=== PATIENT | female | born 2000 | race Caucasian/White ===

== ENCOUNTER 2021-03-29 20:57 | Emergency (ER) | payer SELFPAY ==
[~2021-03-29] VITALS: Ht 160 cm; Wt 72.6 kg
--- NOTE | 2021-03-29 21:39 | ED General ---
General Chief Complaint: Abdominal/GI Problems Stated Complaint: HEADACHE NAUSEA/VOMITING/DIZZINESS Source of Information: Patient History of Present Illness Date Seen by Provider: Mar 29, 2021 Time Seen by Provider: 21:20 Initial Comments PT ARRIVES VIA POV FROM HOME STATES FOR THE LAST 4 DAYS, SHE HAS HAD HEADACHE, NAUSEA WITH A LITTLE BIT OF VOMITING AND A LITTLE BIT OF DIZZINESS--ALL OFF AN ON CURRENTLY IS NOT HAVING ANY SYMPTOMS OF ANY KIND SYMPTOMS ARE NO DIFFERENT TODAY IN ANY WAY HAS NOT SOUGHT CARE UNTIL TONIGHT ( THURSDAY NIGHT) HAS NOT TAKEN ANYTHING FOR SYMPTOMS AT ANY TIME NO ABDOMINAL PAIN NO FEVER NO URINARY SYMPTOMS NO COUGH OR URI SYMPTOMS NO DIARRHEA NO VISION CHANGES NO PARESTHESIAS OR MOTOR DEFICITS NO NECK STIFFNESS HAS BEEN DRINKING FLUIDS WELL, AND HAS CONTINUED TO EAT LMP--END February, NO CONTROL PCP: Review of Systems Review of Systems Constitutional: see HPI; No chills, No diaphoresis; dizziness; No fever, No malaise, No weakness EENTM: no symptoms reported; No blurred vision, No nose congestion, No throat pain Respiratory: no symptoms reported; No cough, No short of breath Cardiovascular: no symptoms reported; No chest pain Gastrointestinal: see HPI; No abdominal pain, No diarrhea; nausea, vomiting Genitourinary: no symptoms reported : No LMP: Mar 17, 2021 Musculoskeletal: No back pain, No neck pain Skin: no symptoms reported Psychiatric/Neurological: See HPI, Headache Hematologic/Lymphatic: No Symptoms Reported Immunological/Allergic: no symptoms reported Physical Exam Vital Signs Capillary Refill : Height, Weight, BMI Height: '" Weight: lbs. oz. kg; BMI Method: General Appearance: No Apparent Distress, WD/WN, Other (DOES NOT APPEAR ILL OR TO BE IN ANY DISCOMFORT OR DISTRESS OR ILL) HEENT: PERRL/EOMI, TMs Normal, Normal ENT Inspection, Pharynx Normal Neck: Normal Inspection Respiratory: Normal Breath Sounds, No Accessory Muscle Use, No Respiratory Distress Cardiovascular: Regular Rate, Rhythm, No Edema, No JVD, No Murmur, Normal Peripheral Pulses Gastrointestinal: Normal Bowel Sounds, No Organomegaly, No Pulsatile Mass, Non Tender, Soft Back: Normal Inspection Extremity: Normal Inspection Neurologic/Psychiatric: Alert, Oriented x3, No Motor/Sensory Deficits, Normal Mood/Affect, jury consultant II-XII Norm as Tested; No Abnormal Cerebellar Tests Skin: Normal Color, Warm/Dry; No Rash Progress/Results/Core Measures Suspected Sepsis SIRS Temperature: Pulse: Respiratory Rate: Blood Pressure / Mean: Results/Orders Lab Results Laboratory Tests Test 03/29/21 21:15 03/29/21 21:35 Range/Units Influenza Type A (RT-PCR) Not Detected Not Detecte Influenza Type B (RT-PCR) Not Detected Not Detecte SARS-CoV-2 RNA (RT-PCR) Not Detected Not Detecte Urine Color YELLOW Urine Clarity CLEAR Urine pH 6.5 5-9 Urine Specific [place] <=1.005 1.016-1.022 Urine Protein NEGATIVE NEGATIVE Urine Glucose (UA) NEGATIVE NEGATIVE Urine Ketones NEGATIVE NEGATIVE Urine Nitrite NEGATIVE NEGATIVE Urine Bilirubin NEGATIVE NEGATIVE Urine Urobilinogen 0.2 < = 1.0 MG/DL Urine Leukocyte Esterase 1+ H NEGATIVE Urine RBC (Auto) NEGATIVE NEGATIVE Urine RBC NONE /HPF Urine WBC 0-2 /HPF Urine Crystals PRESENT H /LPF Urine Amorphous Sediment RARE VIKTOR URATES H /LPF Urine Bacteria TRACE /HPF Urine Casts NONE /LPF Urine Mucus NEGATIVE /LPF Urine Culture Indicated NO Urine Opiates Screen NEGATIVE NEGATIVE Urine Oxycodone Screen POSITIVE H NEGATIVE Urine Methadone Screen NEGATIVE NEGATIVE Urine Propoxyphene Screen NEGATIVE NEGATIVE Urine Barbiturates Screen NEGATIVE NEGATIVE Ur Tricyclic Antidepressants Screen NEGATIVE NEGATIVE Urine Phencyclidine Screen NEGATIVE NEGATIVE Urine Amphetamines Screen NEGATIVE NEGATIVE Urine Methamphetamines Screen NEGATIVE NEGATIVE Urine Benzodiazepines Screen NEGATIVE NEGATIVE Urine Cocaine Screen NEGATIVE NEGATIVE Urine Cannabinoids Screen NEGATIVE NEGATIVE My Orders Orders - ROBYN BARRERA DO Covid 19 Inhouse Test (03/29/21 21:27) Influenza A And B By Pcr (03/29/21 21:27) Drug Screen Stat (Urine) (03/29/21 21:27) Ua Culture If Indicated (03/29/21 21:27) Urine Bedside (03/29/21 21:27) Vital Signs/I&O Capillary Refill : Departure Impression Primary Impression: Nausea and vomiting Additional Impressions: Illicit drug use OPIATE ABUSE Disposition: 01 HOME, SELF-CARE Condition: Stable Departure-Patient Inst. Decision time for Depature: 22:10 Patient Instructions: Drug Abuse Treatment, Drug Abuse and Drug Addiction (DC), Nausea and Vomiting, Adult ED Add. Discharge Instructions: NO DRUGS!!!!!! CLEAR LIQUIDS--WATER, BROTH, JELLO, GATORADE BRATS DIET --BANANAS, RICE, APPLESAUCE, TOAST, SALTINES TYLENOL NEEDED FOR PAIN FOLLOW UP WITH DR. OF CHOICE IN 2-3 DAYS IF NO BETTER All discharge instructions reviewed with patient and/or family. Voiced understanding. Scripts Ondansetron (Ondansetron Odt) 4 Mg Tab.rapdis 4 MG PO Q4H for Nausea/Vomiting, #10 TAB Prov: ROBYN BARRERA DO 03/29/21 Work/School Note: Local [employer] Listing ROBYN BARRERA DO Mar 29, 2021 21:39
[2021-03-29 21:41] LABS: BILIRUBIN,URINE NEGATIVE (NEGATIVE); CLARITY,URINE CLEAR; COLOR,URINE YELLOW; GLUCOSE, URINE (UA) NEGATIVE (NEGATIVE); KETONES,URINE NEGATIVE (NEGATIVE); LEUKOCYTE ESTERASE ,URINE 1+ (NEGATIVE); NITRITE,URINE NEGATIVE (NEGATIVE); PH,URINE 6.5 (5-9); PROTEIN,URINE NEGATIVE (NEGATIVE)
[2021-03-29 21:56] LABS: AMPHETAMINE SCREEN, URINE NEGATIVE (NEGATIVE); BARBITURATE SCREEN URINE NEGATIVE (NEGATIVE); BENZODIAZEPINES SCREEN URINE NEGATIVE (NEGATIVE); CANNABINOID SCREEN, URINE NEGATIVE (NEGATIVE); COCAINE SCREEN URINE NEGATIVE (NEGATIVE); METHADONE STAT NEGATIVE (NEGATIVE); METHAMPHETAMINE SCREEN URINE S NEGATIVE (NEGATIVE); OPIATE SCREEN URINE NEGATIVE (NEGATIVE); OXYCODONE STAT POSITIVE (NEGATIVE); PROPOXYPHENE STAT NEGATIVE (NEGATIVE); TRICYCLIC ANTIDEPRESSANTS SCRE NEGATIVE (NEGATIVE)
[2021-03-29 22:01] LABS: AMORPHOUS SEDIMENT,UR RARE AMOR URATES /LPF; BACTERIA,URINE TRACE /HPF; WBC,URINE 0-2 /HPF
[2021-03-29] MEDS ORDERED: ONDA4TAB11 PO (22:10)
[2021-03-29] MEDS ORDERED: ONDANSETRON 4 MG (ZOFRAN) ORAL DISSOLVE TAB PO ONE (22:15)
[2021-03-29 22:20] VITALS: BP 124/76
== END 2021-03-29 22:20 | disposition home or self-care (01) ==
LOC: ER 20:59
DX: R11.2 Nausea with vomiting, unspecified (principal); F19.90 Other psychoactive substance use, unspecified, uncomplicated; F11.10 Opioid abuse, uncomplicated; Z20.822 Contact with and (suspected) exposure to COVID-19
CPT/HCPCS: 80306; 81000; 84703; 87636; 99283

== ENCOUNTER 2021-07-16 17:08 | Emergency (ER) | payer SELFPAY ==
[~2021-07-16] VITALS: Ht 167 cm; Wt 79.0 kg
[~2021-07-16 17:08] MED LIST: ONDA4TAB11 PO
[2021-07-16] MEDS ORDERED: IBUPROFEN 800 MG (MOTRIN) TAB PO ONE (17:30)
--- NOTE | 2021-07-16 17:32 | ED General ---
General Chief Complaint: Fever-Adult/Adol Stated Complaint: HEADACHE - LOSS OF TASTE - FEVER Nursing Triage Note: THE PT IS AMBULATORY TO THE ROOM WITHOUT DIFFICULTY. NO DISTRESS IS SEEN ON ARRIVAL. LOC IS NORMAL FOR THE PT. THE PT C/O OF A FEVER. Source of Information: Patient Exam Limitations: No Limitations (MAT FERGUSON APRN) History of Present Illness Date Seen by Provider: Jul 16, 2021 Time Seen by Provider: 17:31 Initial Comments Fever up to 101.5 sore throat since yesterday. Boyfriend was here last night and tested positive for Covid. Timing/Duration: 1-2 Days Severity: Moderate Associated Systoms: Cough, Fever/Chills (MAT FERGUSON APRN) Allergies and Home Medications Allergies Coded Allergies: No Known Drug Allergies (Unverified , 03/29/21) Patient Home Medication List Home Medication List Reviewed: Yes (MAT FERGUSON APRN) Ondansetron (Ondansetron Odt) 4 Mg Tab.rapdis, 4 MG PO Q4H Prescribed by: ROBYN BARRERA on 03/29/212209 Review of Systems Review of Systems Constitutional: see HPI, fever, malaise EENTM: see HPI, throat pain Respiratory: see HPI Cardiovascular: no symptoms reported Genitourinary: no symptoms reported Musculoskeletal: no symptoms reported Skin: no symptoms reported Psychiatric/Neurological: No Symptoms Reported Hematologic/Lymphatic: No Symptoms Reported (MAT FERGUSON APRN) Past Hpiduxu-Znpglt-Lybeks Hx Past Medical History Surgeries: No Respiratory: No Cardiac: No Neurological: No Reproductive Disorders: No Genitourinary: No Gastrointestinal: No Musculoskeletal: No Endocrine: No Cancer: No Psychosocial: Yes (OPIATE ABUSE) Integumentary: No Blood Disorders: No (MAT FERGUSON APRN) Physical Exam Vital Signs Vital Signs - First Documented 07/16/21 17:23 Temp 38.5 Pulse 100 Resp 16 B/P (MAP) 142/82 (102) (STACY WARD MD) Vital Signs Capillary Refill : Less Than 3 Seconds (MAT FERGUSON APRN) Height, Weight, BMI Height: '" Weight: lbs. oz. kg; 28.00 BMI Method: General Appearance: No Apparent Distress, WD/WN, Obese Eyes: Bilateral Eye Normal Inspection, Bilateral Eye PERRL, Bilateral Eye EOMI Neck: Full Range of Motion, Normal Inspection Respiratory: No Accessory Muscle Use, No Respiratory Distress Cardiovascular: Regular Rate, Rhythm, Normal Peripheral Pulses Gastrointestinal: Normal Bowel Sounds, Non Tender, Soft Extremity: Normal Capillary Refill, Normal Inspection Neurologic/Psychiatric: Alert, Oriented x3 Skin: Normal Color, Warm/Dry (MAT FERGUSON APRN) Progress/Results/Core Measures Suspected Sepsis SIRS Temperature: Pulse: 100 Respiratory Rate: 16 Blood Pressure 142 /82 Mean: 102 (MAT FERGUSON APRN) Results/Orders Lab Results Laboratory Tests Test 07/16/21 17:20 Range/Units Influenza Type A (RT-PCR) Not Detected Not Detecte Influenza Type B (RT-PCR) Not Detected Not Detecte SARS-CoV-2 RNA (RT-PCR) Detected H Not Detecte (STACY WARD MD) Vital Signs/I&O 07/16/21 07/16/21 17:23 18:12 Temp 38.5 38.5 Pulse 100 100 Resp 16 16 B/P (MAP) 142/82 (102) 142/82 (STACY WARD MD) Vital Signs/I&O Capillary Refill : Less Than 3 Seconds (MAT FERGUSON APRN) Blood Pressure Mean: 102 Departure Communication (Admissions) 1806-I discussed with her that she is positive. Her boyfriend was here last night and tested positive she states. Her symptoms began yesterday. I did offer to set her up for Regeneron infusion given her BMI of 28. At this point she declines and will call back out here and let us know if she changes her mind otherwise. (MAT FERGUSON APRN) Impression Primary Impression: COVID-19 Disposition: 01 HOME, SELF-CARE Condition: Stable Departure-Patient Inst. Decision time for Depature: 17:31 (MAT FERGUSON APRN) Referrals: NO,LOCAL PHYSICIAN (PCP/Family) Primary Care Physician Patient Instructions: COVID-19 ED Add. Discharge Instructions: . Continue use Tylenol and ibuprofen for pain and fever control. And plenty fluids return to ER any worsening. All discharge instructions reviewed with patient and/or family. Voiced understanding. Work/School Note: Work Release Form Date Seen in the Emergency Department: Jul 16, 2021 Return to Work: Jul 27, 2021 Restrictions: No Restrictions ATTENDING PHYSICIAN NOTE: I was physically present as attending physician in the emergency department during the care of this patient, but I was not directly involved in the decision making or delivery of care for this patient. (STACY WARD MD) MAT FERGUSON APRN Jul 16, 2021 17:32 STACY WARD MD Jul 17, 2021 06:31
[2021-07-16 18:12] VITALS: BP 142/82
== END 2021-07-16 18:14 | disposition home or self-care (01) ==
LOC: EDUNIT# 17:08 → ER 17:10
DX: U07.1 COVID-19 (principal); E66.9 Obesity, unspecified; Z68.28 Body mass index [BMI] 28.0-28.9, adult
CPT/HCPCS: 87636; 99283